=== PATIENT | female | born 1995 | race Caucasian/White ===

== ENCOUNTER 2020-12-02 08:59 | Emergency (ER) | payer OTHER, SELFPAY ==
--- NOTE | 2020-12-02 09:18 | ED.URI ---
HPI - URI/Sore Throat General Chief Complaint: Upper Respiratory Infection Stated Complaint: URI Time Seen by Provider: 12/02/20 09:45 Source: patient and RN notes reviewed Mode of arrival: ambulatory Limitations: no limitations History of Present Illness HPI Narrative: 25-year-old [id number] female presents with concern for sinus pressure, sore throat, swollen neck glands. Reports symptoms started 3 days ago. She denies any known sick contacts, Covid exposure. Denies shortness of breath, loss of sense of taste or smell, fever, body aches, chills, sweats. Reports occasional cough. MD elicited complaint: sore throat Related Data Home Medications Medication Instructions Recorded Confirmed albuterol sulfate 2 puff INHALATION QID PRN 12/02/20 12/02/20 Allergies Allergy/AdvReac Type Severity Reaction Status Date / Time No Known Allergies Allergy Unverified 12/02/20 09:39 Review of Systems Review of Systems: Narrative: CONSTITUTIONAL: Denies malaise, chills, sweats, or fever. EYES: Denies visual changes, redness, or discharge. ENT: Reports rhinorrhea, congestion, otalgia and sore throat. CARDIOVASCULAR: Denies chest pain, palpitations, or edema. RESPIRATORY: Reports occasional cough. Denies dyspnea. GASTROINTESTINAL: Denies abdominal pain, nausea, vomiting, diarrhea SKIN: Denies rash or itching. MUSCULOSKELETAL: Denies myalgia. NEUROLOGIC: Denies headache. All systems reviewed & are unremarkable except as noted in HPI and below PMFSH Comments At time of signature, agree with nursing past medical, surgical, social and family history. There is no relevant family history pertinent to the presenting complaint Exam Narrative: Exam Narrative: GENERAL: Well-appearing, well-nourished, and in no acute distress. HEAD: Normocephalic EYES: PERRLA, conjunctivae clear ENT: Nares clear, turbinates erythematous, clear discharge. Mucous membranes moist. TM pearly sandhu with dull light reflex bilaterally; no tragal tenderness. Oropharynx erythematous without lesions. Tonsils enlarged and without exudate, no drooling, no hoarseness, no trismus, uvula midline. NECK: Supple. No lymphadenopathy CHEST: Clear to auscultation, breath sounds equal. No wheezing, rhonchi, rales, or stridor. No respiratory distress, speaks in full sentences. HEART: Regular rate and rhythm. No murmur heard. SKIN: Warm, dry, no rash. NEURO: Alert and oriented x3. PSYCH: Normal mood and affect Course Course Emergency Course: Patient is aware of diagnosis, understands and agrees to treatment plan. Anticipatory guidance given. Patient agrees to follow-up as directed and is aware of reasons to seek care at the emergency department. Portions of this record may have been created with voice recognition software Vital Signs Vital signs: Vital Signs Temperature 97.6 F 12/02/20 09:20 Pulse Rate 76 12/02/20 09:20 Respiratory Rate 18 12/02/20 09:20 Blood Pressure 127/76 12/02/20 09:20 Pulse Oximetry 98 12/02/20 09:20 Temperature 97.6 F 12/02/20 09:20 Pulse Rate 76 12/02/20 09:20 Respiratory Rate 18 12/02/20 09:20 Blood Pressure 127/76 12/02/20 09:20 Pulse Oximetry 98 12/02/20 09:20 Reviewed. MDM - URI/Sore Throat MDM Narrative Medical decision making narrative: Differential diagnosis considered: Richards virus, strep pharyngitis, allergic rhinitis, upper respiratory tract infection, sinusitis, rhinosinusitis, nasopharyngitis. viral pharyngitis, otitis media, otitis externa, pneumonia, bronchitis, viral cough syndrome, viral syndrome, and influenza. Exam findings show no acute concerns or changes; patient is non-toxic appearing and is in no distress. Patient is appropriate for outpatient treatment and follow-up. Lab Data Labs: Strep Screen Positive Group A Strep *(Reference Range: Negative)* Critical Care Time Critical Care Time Critical Care Time: No Discharge Plan
[2020-12-02 09:20] VITALS: BP 127/76; PULSE 76; RESP 18; TEMP 36.4; O2SAT 98
== END 2020-12-02 10:00 | disposition home or self-care (01) ==
PROVIDERS: Emergency Provider Nurse Practitioner
DX: J02.0 Streptococcal pharyngitis (principal); J45.909 Unspecified asthma, uncomplicated
CPT/HCPCS: 87880; 99213; G0463

== ENCOUNTER 2021-06-12 08:26 | Emergency (ER) | payer OTHER, SELFPAY ==
[2021-06-12 08:31] VITALS: BP 138/82; PULSE 94; RESP 20; TEMP 37.2; O2SAT 98
--- NOTE | 2021-06-12 08:31 | ED.SKABFB ---
HPI - Skin/Abscess/Foreign Bdy General Chief complaint: Skin/Abscess/Foreign Body Stated complaint: underarm pain knot in armpit Time Seen by Provider: 06/12/21 08:32 Source: patient and RN notes reviewed History of Present Illness HPI narrative: Patient is a 26-year-old female who presents the urgent care with complaints of an abscess under the left axilla. Patient states that it has been there for approximately 2 to 3 days and she popped one last night . Patient states that she has had these in the past. Denies any fever, chills, nausea, vomiting. Patient is use warm compress for comfort. No other acute complaints. No acute distress noted. Patient aware of the plan of care. Some parts of this dictation were generated by voice recognition software and may contain typographical and/or grammatical inaccuracies. Related Data Home Medications Medication Instructions Recorded Confirmed prednisone 40 mg PO DAILY 06/12/21 06/12/21 Allergies Allergy/AdvReac Type Severity Reaction Status Date / Time No Known Allergies Allergy Verified 06/12/21 08:46 Review of Systems Review of Systems: CONSTITUTIONAL: Denies fever, chills, or sweats. EYES: Denies visual changes, redness, or discharge. ENT: Denies rhinorrhea, congestion, sore throat, or otalgia. CARDIOVASCULAR: Denies chest pain, palpitations, or edema. RESPIRATORY: Denies cough or dyspnea. GASTROINTESTINAL: Denies abdominal pain, nausea, vomiting, or diarrhea. GENITOURINARY: Denies dysuria or hematuria. SKIN: Reports of a painful lump under the left arm MUSCULOSKELETAL: Denies back pain, joint pain, or myalgia. NEUROLOGIC: Denies headache, numbness, or weakness. All other systems reviewed are negative, except as documented in HPI. PMFSH Comments At the time of my signature, I reviewed and agree with the nursing past medical, surgical, social, and family history. There is no relevant family history pertinent to the patient complaint. Exam Narrative: GENERAL: This is a well-nourished, well-developed patient, in no apparent distress. HEAD: normocephalic, atraumatic. EYES: PERRL. Sclera clear/white. Vision is grossly intact. EARS: External ears normal NOSE: External nose normal with no obvious nasal discharge, nares without redness, no rhinorrhea. THROAT: Mucous membranes moist NECK: Neck supple CARDIOVASCULAR: Regular rate and rhythm without murmurs, gallops, or rubs. RESPIRATORY: Clear to auscultation. Breath sounds equal bilaterally. No wheezes, rales, or rhonchi. SKIN: 5 x 4 cm firm abscess with 0.25 at draining center to the left axilla with moderate tenderness NEURO: awake, alert, and oriented to person, place and time. There were no obvious focal neurologic abnormalities. EXTREMITIES: No clubbing, cyanosis, or edema. Course Vital Signs Vital signs: Vital Signs Temperature 99 F 06/12/21 08:31 Pulse Rate 94 06/12/21 08:31 Respiratory Rate 20 06/12/21 08:31 Blood Pressure 138/82 06/12/21 08:31 Pulse Oximetry 98 06/12/21 08:31 Temperature 99 F 06/12/21 08:31 Pulse Rate 94 06/12/21 08:31 Respiratory Rate 20 06/12/21 08:31 Blood Pressure 138/82 06/12/21 08:31 Pulse Oximetry 98 06/12/21 08:31 Reviewed MDM - Skin/Abscess/Foreign Bdy MDM Narrative Medical decision making narrative: Advised the patient to complete the oral antibiotic regimen as prescribed. Be sure to eat and drink with the medication. Avoid shaving under the arm until full resolution. Make sure to shave towards the hairline. Use Tylenol/ibuprofen/warm compress as needed for pain and comfort. Follow-up with your PCP within 2 to 5 days or for worsening symptoms or failure to improve. Differential Diagnosis Differential diagnosis: Likely abscess of skin or subcutaneous tissue, urticaria, allergic reaction to drug, cellulitis, impetigo and contact dermatitis Critical Care Time Critical Care Time Critical Care Time: No Discharge Plan Discharge Clinical Impr
== END 2021-06-12 08:47 | disposition home or self-care (01) ==
PROVIDERS: Emergency Provider Nurse Practitioner Family; PCP Hospitalist
DX: L02.412 Cutaneous abscess of left axilla (principal)
CPT/HCPCS: 99213; G0463

== ENCOUNTER 2021-10-05 11:58 | Emergency (ER) | payer OTHER, SELFPAY ==
--- NOTE | ~2021-10-05 | XR_ITS ---
XR knee LT 3V DATE: 10/05/2021 12:24 INDICATION: Interval twisting injury. Medial pain. Patient heard a pop. TECHNIQUE: AP, crosstable lateral and bilateral oblique views COMPARISON: None FINDINGS: Mild suprapatellar knee joint effusion is suggested. No fracture or dislocation, radial opaque interarticular loose body or chondrocalcinosis is evident. Joint spaces are preserved. No periosteal reaction or bone destruction. IMPRESSION: Suggestion of mild suprapatellar knee joint effusion; no significant bony abnormality Reviewed, dictated and finalized at location A. [employer] IMPRESSION: Suggestion of mild suprapatellar knee joint effusion; no significan t bony abnormality
[2021-10-05 12:05] VITALS: BP 119/79; PULSE 83; RESP 18; TEMP 36.8; O2SAT 100
--- NOTE | 2021-10-05 12:11 | ED.LOWEXIN ---
HPI - Extremity Injury (Lower) General Chief Complaint: Extremity Injury, Lower Stated Complaint: left knee injury Time Seen by Provider: 10/05/21 12:11 Source: patient and RN notes reviewed History of Present Illness HPI Narrative: Patient is a 26-year-old female who presents the urgent care with complaints of left knee pain. Patient states that she was at [employer] which is an [facility] facility. Patient states that she heard a pop in her left knee and twisted the leg. Patient states that she has been trying to keep it elevated and stay off the knee with the use of ibuprofen. Denies of any traumatic fall. Denies of any blunt force trauma to the knee. No other acute complaints or injuries. No acute distress noted. Patient aware of the plan of care. Some parts of this dictation were generated by voice recognition software and may contain typographical and/or grammatical inaccuracies. Related Data Allergies Allergy/AdvReac Type Severity Reaction Status Date / Time No Known Allergies Allergy Verified 10/05/21 12:16 Review of Systems Review of Systems: CONSTITUTIONAL: Denies fever, chills, or sweats. EYES: Denies visual changes, redness, or discharge. ENT: Denies rhinorrhea, congestion, sore throat, or otalgia. CARDIOVASCULAR: Denies chest pain, palpitations, or edema. RESPIRATORY: Denies cough or dyspnea. GASTROINTESTINAL: Denies abdominal pain, nausea, vomiting, or diarrhea. GENITOURINARY: Denies dysuria or hematuria. SKIN: Denies rash or itching. MUSCULOSKELETAL: Reports of left knee pain NEUROLOGIC: Denies headache, numbness, or weakness. All other systems reviewed are negative, except as documented in HPI. PMFSH Comments At the time of my signature, I reviewed and agree with the nursing past medical, surgical, social, and family history. There is no relevant family history pertinent to the patient complaint. Exam Narrative: GENERAL: This is a well-nourished, well-developed patient, in no apparent distress. HEAD: normocephalic, atraumatic. EYES: PERRL. Sclera clear/white. Vision is grossly intact. EARS: External ears normal NOSE: External nose normal with no obvious nasal discharge, nares without redness, no rhinorrhea. THROAT: Mucous membranes moist NECK: Neck supple SKIN: warm, intact with no suspicious lesions or rash, good texture and turgor. NEURO: awake, alert, and oriented to person, place and time. There were no obvious focal neurologic abnormalities. EXTREMITIES: Positive left anterior drawer test. Moderate anterior left knee tenderness. Mild to moderate swelling to the anterior and medial aspect of the left knee. Positive strong left pedal pulse capillary refill less than 2 seconds. Range of motion not tested due to pain. Course Course Level of Care: Express Care Visit Vital Signs Vital signs: Vital Signs Temperature 98.3 F 10/05/21 12:05 Pulse Rate 83 10/05/21 12:05 Respiratory Rate 18 10/05/21 12:05 Blood Pressure 119/79 10/05/21 12:05 Pulse Oximetry 100 10/05/21 12:05 Temperature 98.3 F 10/05/21 12:05 Pulse Rate 83 10/05/21 12:05 Respiratory Rate 18 10/05/21 12:05 Blood Pressure 119/79 10/05/21 12:05 Pulse Oximetry 100 10/05/21 12:05 Reviewed MDM - Extremity Injury (Lower) MDM Narrative Medical decision making narrative: Reviewed x-ray results with the patient. She is aware that x-ray was negative for fracture deformity. There is a notable effusion in the joint which is likely related to a ligament injury. Advised the patient to keep the knee stabilized with a knee immobilizer or an Jovan wrap. Keep the leg elevated with the use of ice/Tylenol/ibuprofen as needed for pain and comfort. Stay off the knee as much as possible until follow-up and released from the orthopedic. Follow-up with the Ortho/PCP tomorrow for future appointment and further reference. Differential Diagnosis Differential diagnosis: Likely ankle sprain and strain, acute internal derang
== END 2021-10-05 12:45 | disposition home or self-care (01) ==
PROVIDERS: Emergency Provider Nurse Practitioner Family; PCP Hospitalist
DX: M25.462 Effusion, left knee (principal); J45.909 Unspecified asthma, uncomplicated
CPT/HCPCS: 73562; 99213; G0463; L1830

== ENCOUNTER 2022-07-13 10:39 | Emergency (ER) | payer OTHER, SELFPAY ==
[2022-07-13 10:48] VITALS: BP 134/62; PULSE 78; RESP 16; TEMP 36.9; O2SAT 100
--- NOTE | 2022-07-13 11:05 | ED.URI ---
HPI - URI/Sore Throat General Chief Complaint: Upper Respiratory Infection Stated Complaint: sore throat Time Seen by Provider: 07/13/22 11:05 Source: patient, RN notes reviewed and old records reviewed Mode of arrival: ambulatory Limitations: no limitations History of Present Illness HPI Narrative: 27-year-old female who presents to Express Care with complaints of sore throat, nasal drainage which started yesterday. Patient reports that it feels like swallowing razor blades, rates pain 5/0 and has been taking Aleve for her discomfort. Patient reports some nasal congestion and drainage also, rare occasional cough and some mild left ear discomfort. MD elicited complaint: sore throat Onset (ago): day(s) (day 2 of symptoms) Consistency: constant Pain scale (0-10): 5 Able to tolerate fluids by mouth: Yes Exacerbating factors: swallowing Treatments prior to arrival: other (Aleve) Related Data Allergies Allergy/AdvReac Type Severity Reaction Status Date / Time Penicillins Allergy AUTOIMMUNE Verified 07/13/22 10:59 RESPONE, SCARRING TO LEGS Review of Systems Review of Systems: CONSTITUTIONAL: Denies malaise, chills, sweats, or fever. EYES: Denies visual changes, redness, or discharge. ENT: Reports rhinorrhea, congestion, sinus pain, otalgia and sore throat. CARDIOVASCULAR: Denies chest pain, palpitations, or edema. RESPIRATORY: Reports cough.? Denies dyspnea. GASTROINTESTINAL: Denies abdominal pain, nausea, vomiting, diarrhea SKIN: Denies rash or itching. MUSCULOSKELETAL: Denies myalgia. NEUROLOGIC: Denies headache. All systems reviewed & are unremarkable except as noted in HPI and below PMFSH Past Medical History Medical History (Updated 07/14/22 @ 00:00 by Sanjana Downey) Asthma Pneumonia UTI (urinary tract infection) Surgical History Surgical History (Updated 07/13/22 @ 11:20 by Mar Miguel NP) Hx of cholecystectomy Social History Social History (Updated 07/13/22 @ 11:22 by Mar Miguel NP) Smoking status: Never smoker Alcohol intake: current Alcohol use details: social Substance use type: does not use Living arrangements: with family Gender identity (if verbalized by the patient): Female Comments At time of signature, agree with nursing past medical, surgical, social and family history. There is no relevant family history pertinent to the presenting complaint Exam Narrative: GENERAL: Well-appearing, well-nourished, and in no acute distress. HEAD: Normocephalic EYES: PERRLA, conjunctivae clear ENT: Nares clear, turbinates edematous and erythematous, clear discharge. Mucous membranes moist. TM pearly sandhu with dull light reflex bilaterally; no tragal tenderness. Oropharynx erythematous without lesions. Tonsils enlarged and with white lesions and exudate, no drooling, no hoarseness, no trismus, uvula midline. NECK: Supple. lymphadenopathy CHEST: Clear to auscultation, breath sounds equal. No wheezing, rhonchi, rales, or stridor. No respiratory distress, speaks in full sentences.SAO2 100% on room air HEART: Regular rate and rhythm. No murmur heard. SKIN: Warm, dry, no rash. NEURO: Alert and oriented x3. PSYCH: Normal mood and affect Course Course Emergency Course: Patient is aware of diagnosis, understands and agrees to treatment plan.? Anticipatory guidance given.? Patient agrees to follow-up as directed and is aware of reasons to seek care at the emergency department. Portions of this record may have been created with voice recognition software Level of Care: Express Care Visit Vital Signs Vital signs: Vital Signs Temperature 36.9 C 07/13/22 10:48 Pulse Rate 78 07/13/22 10:48 Respiratory Rate 16 07/13/22 10:48 Blood Pressure 134/62 07/13/22 10:48 Pulse Oximetry 100 07/13/22 10:48 Oxygen Delivery Room Air 07/13/22 10:48 Temperature 36.9 C 07/13/22 10:48 Pulse Rate 78 07/13/22 10:48 Respira
== END 2022-07-13 11:29 | disposition home or self-care (01) ==
PROVIDERS: Emergency Provider Registered Nurse; PCP Hospitalist
DX: J02.0 Streptococcal pharyngitis (principal)
CPT/HCPCS: 87880; 99213; G0463

== ENCOUNTER 2022-07-20 19:30 | Emergency (ER) | payer OTHER, SELFPAY ==
[2022-07-20 19:48] VITALS: BP 129/77; PULSE 56; RESP 16; TEMP 36.3; O2SAT 97
--- NOTE | 2022-07-20 20:00 | ED.DENTAL ---
HPI - Dental/Oral General Chief complaint: Dental/Oral Stated complaint: Tooth pain Time Seen by Provider: 07/20/22 20:00 Source: patient Mode of arrival: ambulatory Limitations: no limitations History of Present Illness HPI Narrative: 27-year-old female presents with concern for right lower dental pain. She reports approximately 2 weeks ago she broke the tooth. She reports she started having pain about 3 days ago with swelling and tenderness to for right jaw. She denies difficulty swallowing, fever, chills, sweats. Reports she took Aleve. Complaint: tooth pain Related Data Allergies Allergy/AdvReac Type Severity Reaction Status Date / Time Penicillins Allergy AUTOIMMUNE Verified 07/20/22 19:47 RESPONE, SCARRING TO LEGS Review of Systems Review of Systems: CONSTITUTIONAL: Denies malaise, chills, sweats, or fever. EYES: Denies visual changes ENT: Denies rhinorrhea, congestion, sinus pain, otalgia or sore throat. Reports right lower dental pain CARDIOVASCULAR: Denies chest pain, palpitations RESPIRATORY: Denies cough or dyspnea. SKIN: Denies rash or itching. MUSCULOSKELETAL: Denies myalgia. NEUROLOGIC: Denies numbness, weakness, or headache. All systems reviewed & are unremarkable except as noted in HPI and below PMFSH Past Medical History Medical History (Updated 07/20/22 @ 20:03 by Negin Borjas NP) Asthma Pneumonia UTI (urinary tract infection) Surgical History Surgical History (Updated 07/13/22 @ 11:20 by Mar Miguel NP) Hx of cholecystectomy Social History Social History (Updated 07/13/22 @ 11:22 by Mar Miguel NP) Smoking status: Never smoker Alcohol intake: current Alcohol use details: social Substance use type: does not use Gender identity (if verbalized by the patient): Female Comments At time of signature, agree with nursing past medical, surgical, social and family history. There is no relevant family history pertinent to the presenting complaint Exam Narrative: GENERAL: Well-appearing, well-nourished, and in no acute distress. HEAD: Normocephalic, atraumatic. EYES: PERRLA, sclera clear ENT: Nares clear, turbinates pink, no rhinorrhea or epistaxis. Mucous membranes moist. TM pearly sandhu with sharp light reflex bilaterally; no tragal tenderness. Oropharynx without erythema or lesions. Tonsils not enlarged and without exudate. She has numbers 29 appears broken with mild surrounding erythema, no visible abscess, mild swelling and tenderness noted to the right jaw NECK: Supple. No lymphadenopathy. CHEST: No respiratory distress. Speaks in full sentences. HEART: Regular rate and rhythm. SKIN: Warm, dry, no visible rash. NEURO: Alert and oriented x3. PSYCH: Normal mood and affect Course Course Emergency Course: Patient is aware of diagnosis, understands and agrees to treatment plan. Anticipatory guidance given. Patient agrees to follow-up as directed and is aware of reasons to seek care at the emergency department. Portions of this record may have been created with voice recognition software Level of Care: Express Care Visit Vital Signs Vital signs: Vital Signs Temperature 97.4 F L 07/20/22 19:48 Pulse Rate 56 L 07/20/22 19:48 Respiratory Rate 16 07/20/22 19:48 Blood Pressure 129/77 07/20/22 19:48 Pulse Oximetry 97 07/20/22 19:48 Oxygen Delivery Room Air 07/20/22 19:48 Temperature 97.4 F L 07/20/22 19:48 Pulse Rate 56 L 07/20/22 19:48 Respiratory Rate 16 07/20/22 19:48 Blood Pressure 129/77 07/20/22 19:48 Pulse Oximetry 97 07/20/22 19:48 Oxygen Delivery Room Air 07/20/22 19:48 Reviewed. MDM - Dental/Oral MDM Narrative Medical decision making narrative: Patients pain and complaint coupled with physical findings are consistant with dentalgia. There are no focal signs of space occupying lesions that are compromising to the airway; no dysphagia, odynophagia, dysphonia, or dyspnea. No uvular
== END 2022-07-20 20:09 | disposition home or self-care (01) ==
PROVIDERS: Emergency Provider Nurse Practitioner; PCP Hospitalist
DX: K04.7 Periapical abscess without sinus (principal); J45.909 Unspecified asthma, uncomplicated
CPT/HCPCS: 99213; G0463

== ENCOUNTER 2023-09-18 14:10 | Emergency (ER) | payer OTHER, SELFPAY ==
[2023-09-18 14:17] VITALS: BP 127/65; PULSE 86; RESP 18; TEMP 36.3; O2SAT 99
--- NOTE | 2023-09-18 15:19 | ED.GENADULT ---
HPI - General Adult General Chief complaint: Upper Respiratory Infection Stated complaint: Sore Throat Source: patient Mode of arrival: ambulatory Limitations: no limitations History of Present Illness HPI narrative: Patient presents for evaluation of sore throat. Symptom onset last night. She has associated fatigue and right sided anterior cervical lymphadenopathy. Denies any fever, chills, nausea, vomiting, diarrhea, cough or SOB. No recent sick contacts to her knowledge. She is not taking any medication to assist with her symptoms. Related Data Allergies Allergy/AdvReac Type Severity Reaction Status Date / Time Penicillins Allergy AUTOIMMUNE Verified 07/20/22 19:47 RESPONE, SCARRING TO LEGS Review of Systems Review of Systems: CONSTITUTIONAL:Reports fatigue. Denies fever, chills, or sweats. EYES: Denies visual changes, redness, or discharge. ENT: Reports sore throat. Denies rhinorrhea, congestion, or otalgia. CARDIOVASCULAR: Denies chest pain, palpitations, or edema. RESPIRATORY: Denies cough or dyspnea. GASTROINTESTINAL: Denies abdominal pain, nausea, vomiting, or diarrhea. GENITOURINARY: Denies dysuria or hematuria. SKIN: Denies rash or itching. MUSCULOSKELETAL: Denies back pain, joint pain, or myalgia. LYMPHATICS: Reports right sided anterior cervical lymphadenopathy. NEUROLOGIC: Denies headache, numbness, dizziness, or weakness. PSYCHIATRIC: Denies anxiety or depression. [facility] Past Medical History Medical History Asthma Pneumonia UTI (urinary tract infection) Surgical History Surgical History Hx of cholecystectomy Family History Family History (Updated 09/18/23 @ 15:22 by Reji Neri [facility], ) Mother Family history non-contributory Social History Social History Smoking status: Never smoker Alcohol intake: current Alcohol use details: social Substance use type: does not use Living arrangements: with family Gender identity (if verbalized by the patient): Female Exam Narrative: GENERAL: Well-appearing, well-nourished, and in no acute distress. HEAD: Normocephalic, atraumatic. EYES: PERRLA and EOMI. ENT: Nares clear, no rhinorrhea or epistaxis. Mucous membranes moist. There is posterior pharyngeal erythema without exudate. Uvula is midline. Bilateral TMs pearly sandhu nonbulging NECK: Supple. No adenopathy or masses. No carotid bruits or JVD CHEST: Clear to auscultation. No respiratory distress. No wheezes rales or rhonchi HEART: Regular rate and rhythm. No murmur heard. Normal peripheral pulses. ABDOMEN: Soft, nontender, nondistended, normal active bowel sounds. EXTREMITIES: Normal range of motion. No edema. LYMPHATICS: Right sided anterior cervical lymphadenopathy. SKIN: Warm, dry, no rash. NEURO: No focal deficits. Alert and oriented x3. PSYCH: Normal mood and affect. Course Course Emergency Course: This is a 28-year-old female who presented for evaluation of sore throat. Rapid strep negative. Through shared decision making opted to proceed with abx therapy. Will dc with keflex. Increase hydration. OTC meds for symptom management. Follow up with primary provider. Go to the ER for worsening symptoms Pt in agreement with plan of care. Level of Care: Express Care Visit Vital Signs Vital signs: Vital Signs Temperature 36.3 C L 09/18/23 14:17 Pulse Rate 86 09/18/23 14:17 Respiratory Rate 18 09/18/23 14:17 Blood Pressure 127/65 09/18/23 14:17 Pulse Oximetry 99 09/18/23 14:17 Oxygen Delivery Room Air 09/18/23 14:17 Temperature 36.3 C L 09/18/23 14:17 Pulse Rate 86 09/18/23 14:17 Respiratory Rate 18 09/18/23 14:17 Blood Pressure 127/65 09/18/23 14:17 Pulse Oximetry 99 09/18/23 14:17 Oxygen Delivery Room Air 09/18/23 14
== END 2023-09-18 15:20 | disposition home or self-care (01) ==
PROVIDERS: Emergency Provider Nurse Practitioner; PCP Hospitalist
DX: J02.9 Acute pharyngitis, unspecified (principal); J45.909 Unspecified asthma, uncomplicated
CPT/HCPCS: 87081; 87880; 99213; G0463